=== PATIENT | female | born 1980 | race Caucasian/White ===

== ENCOUNTER 2017-01-08 13:51 | Inpatient (IN) | payer OTHER ==
[~2017-01-08] VITALS: Ht 167.6 cm; Wt 89.4 kg
--- NOTE | ~2017-01-08 | CON ---
[place], [place] REPORT OF CONSULTATION [facility]: [facility]O [facility]INS [id number] UNIT #: [id number] ROOM: 523 DOCTOR: SEBASTIAN WAKEFIELD MD BIRTHDATE: [birth year] DOS: 01/15/2017 CHIEF COMPLAINT: "I need to get my life together, I need help." HISTORY OF PRESENT ILLNESS: This is a 36-year-old white female who was admitted to the [facility] secondary to significant alcohol and opiate abuse. The patient was actively withdrawing upon admission. She reports using 1000 mg of Ultram daily and has been abusing Ultram for the last 3-4 years. Additionally, she will drink either a bottle of vodka or several bottles of wine daily. The patient from a psychiatric standpoint reports depression started approximately 15 or 16 years ago after the of her first child. Subsequently, she has had 2 more children in the last 2-3 years and the depression in each case became worse. 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 She also endorses significant free riding anxiety that is present through most of the day. In the past, she had been on Wellbutrin following the of her first child. Subsequently, she had a trial of Effexor that only seemed to make the symptoms of anxiety worse. Most recently, she was placed on Lexapro and feels that the Lexapro has helped with the depression and the anxiety, but there are still some residual symptoms that persist. The patient has been involved in an ongoing counseling session with a therapist out at [place], [place]. PAST MEDICAL HISTORY: Remarkable for hypothyroidism secondary to thyroid cancer and subsequent thyroidectomy. She also has a history of fibromyalgia and reflex sympathetic dystrophy. MENTAL STATUS: The patient is alert and oriented to person, place, and time. Mood is overwhelmingly depressed. Affect is flat and blunted with constricted range. She also endorses significant anxiety with the typical autonomic nervous system symptoms. There is no hypomania or quang. There are no overt auditory or visual hallucinations. No delusions, no paranoia. Short, intermediate, and long-term memory are intact. FINAL DIAGNOSES: Major depression, recurrent; dysthymic disorder; polysubstance dependence; and anxiety disorder, not otherwise specified. PLAN: Given the fact that she feels that the Lexapro has benefitted her, I will maintain the Lexapro 20 mg a day. I will augment with Abilify 5 mg at bedtime. If this does not help, I would recommend pushing the Abilify at least to 10 and consider the possibility of switching from Lexapro to Cymbalta. She is to go to a rehab facility from here. If she desires, she can follow up at [facility] with one of my nurse practitioners post-discharge. [place], [place] REPORT OF CONSULTATION NAME: MAURO HAWKINS UNIT #: [id number] ROOM: 523 DOCTOR: SEBASTIAN WAKEFIELD MD BIRTHDATE: [birth year] SEBASTIAN WAKEFIELD MD CM:CONSTR:REPORT OF CONSULTATION [id number] 01/15/17 0923 interface
[2017-01-08 14:11] VITALS: BP 162/120
[2017-01-08] MEDS ORDERED: Synthroid,Lev200 MCG PO (14:15)
[2017-01-08] MEDS ORDERED: ESCITALOPRAM OX20 MG PO (14:15)
[2017-01-08] MEDS ORDERED: TRAMADOL HCL50 MG PO (14:16)
[2017-01-08] MEDS ORDERED: VENLAFAXINE H37.5 M5 PO (14:16)
[2017-01-08] MEDS ORDERED: LYRICA200 M1 PO (14:17)
[2017-01-08 15:21] LABS: BASO # 0.1 10*3/uL (0.0-0.1); BASO % 1.1 % (0.0-1.0); HEMATOCRIT 42.3 % (37.0-47.0); IG # 0.1 10*3/uL (0.0-0.1); LYMPH # 0.7 10*3/uL (1.3-4.4); LYMPH % 9.7 % (27.0-41.0); MEAN CELL VOLUME 89.1 fl (81.0-99.0); MEAN CORPUSCULAR HGB 31.6 pg (27.0-31.0); MEAN CORPUSCULAR HGB CONC 35.5 g/dl (33.0-37.0); MEAN PLATELET VOLUME 9.9 fl (9.6-12.3); MONO # 0.4 10*3/uL (0.1-1.0); MONO % 5.2 % (3.0-9.0); NEUT % 83.3 % (47.0-73.0); PLATELET COUNT AUTOMATED 292 10*3/uL (130-400); RED BLOOD COUNT 4.75 10*6/uL (4.10-5.10); RED CELL DISTRI WIDTH 12.3 % (0-14.5); WHITE BLOOD COUNT 7.1 10*3/uL (4.8-10.8)
[2017-01-08 15:33] VITALS: BP 170/120
[2017-01-08 15:35] LABS: ALBUMIN 4.2 gm/dl (3.1-4.5); ALKALINE PHOSPHATASE 134 U/L (45-117); BILIRUBIN, TOTAL 0.9 mg/dl (0.2-1.0); BUN 12 mg/dl (7-24); CARBON DIOXIDE 30 mmol/L (21-32); CHLORIDE 99 mmol/L (98-107); EST GLOM FILT AFRICAN AMERICAN > 60 ml/min; GLUCOSE 106 mg/dL (65-99); MAGNESIUM 1.5 mg/dL (1.5-2.1); POTASSIUM 4.4 mmol/L (3.5-5.1); SGOT/AST 79 IU/L (3-35); SGPT/ALT 75 U/L (12-78); SODIUM 138 mmol/L (136-145); TOTAL PROTEIN 8.1 gm/dL (6.4-8.2)
[2017-01-08 15:42] VITALS: BP 165/102
[2017-01-08 16:00] VITALS: BP 147/104; BP 149/76
[2017-01-08 16:49] LABS: PROTHROMBIN TIME 10.8 SECONDS (9.0-12.4)
[2017-01-08 20:00] VITALS: BP 138/103
[2017-01-08 22:28] LABS: BILIRUBIN NEGATIVE (NEGATIVE); BLOOD NEGATIVE (NEGATIVE); CLARITY CLEAR (CLEAR); COLOR YELLOW (YELLOW); GLUCOSE NEGATIVE (NEGATIVE); KETONE NEGATIVE (NEGATIVE); LEUKO ESTERASE NEGATIVE (NEGATIVE); NITRITE NEGATIVE (NEGATIVE); PROTEIN TRACE (NEGATIVE); UROBILINOGEN 0.2 E.U./dl (0.2-1.0)
[2017-01-08 22:36] LABS: URINE REFLEX COMMENT NO (NO); WBC 0-2 wbc/hpf (0-5)
[2017-01-09] VITALS: BP 132/102
[2017-01-09 04:00] VITALS: BP 119/78
[2017-01-09 08:00] VITALS: BP 126/90
[2017-01-09 12:00] VITALS: BP 130/90
[2017-01-09 16:00] VITALS: BP 133/77
[2017-01-09 20:00] VITALS: BP 113/81
[2017-01-09 22:24] LABS: URINE AMPHETAMINES < 1000 (1000ng/ml); URINE BARBITURATES < 200 (200ng/ml); URINE COCAINE < 300 (300ng/ml)
[2017-01-10] VITALS: BP 134/67
[2017-01-10 08:00] VITALS: BP 116/73
[2017-01-10 12:00] VITALS: BP 115/86
[2017-01-10 16:00] VITALS: BP 117/79
[2017-01-10 20:00] VITALS: BP 142/93
[2017-01-11] VITALS: BP 131/79
[2017-01-11 06:43] LABS: BASO # 0.1 10*3/uL (0.0-0.1); BASO % 1.3 % (0.0-1.0); EOS # 0.2 10*3/uL (0.0-0.4); EOS % 4.4 % (1.0-4.0); HEMATOCRIT 32.5 % (37.0-47.0); HEMOGLOBIN 10.9 g/dl (12.0-16.0); LYMPH # 1.1 10*3/uL (1.3-4.4); LYMPH % 28.5 % (27.0-41.0); MEAN CELL VOLUME 95.3 fl (81.0-99.0); MEAN CORPUSCULAR HGB CONC 33.5 g/dl (33.0-37.0); MEAN PLATELET VOLUME 10.6 fl (9.6-12.3); MONO # 0.4 10*3/uL (0.1-1.0); MONO % 9.5 % (3.0-9.0); NEUT # 2.2 10*3/uL (2.3-7.9); NEUT % 55.5 % (47.0-73.0); PLATELET COUNT AUTOMATED 146 10*3/uL (130-400); RED BLOOD COUNT 3.41 10*6/uL (4.10-5.10); RED CELL DISTRI WIDTH 13.1 % (0-14.5); WHITE BLOOD COUNT 3.9 10*3/uL (4.8-10.8)
[2017-01-11 07:40] LABS: EST GLOM FILT AFRICAN AMERICAN > 60 ml/min
[2017-01-11 08:00] VITALS: BP 122/78
[2017-01-11 12:00] VITALS: BP 130/85
[2017-01-11 16:00] VITALS: BP 120/80
[2017-01-11 20:00] VITALS: BP 114/87
[2017-01-12] VITALS: BP 129/75
[2017-01-12 04:00] VITALS: BP 125/98
[2017-01-12 06:21] LABS: BASO % 0.8 % (0.0-1.0); EOS # 0.2 10*3/uL (0.0-0.4); EOS % 2.9 % (1.0-4.0); HEMATOCRIT 31.4 % (37.0-47.0); HEMOGLOBIN 10.5 g/dl (12.0-16.0); IG # 0.1 10*3/uL (0.0-0.1); LYMPH # 0.8 10*3/uL (1.3-4.4); LYMPH % 14.8 % (27.0-41.0); MEAN CELL VOLUME 95.2 fl (81.0-99.0); MEAN CORPUSCULAR HGB 31.8 pg (27.0-31.0); MEAN CORPUSCULAR HGB CONC 33.4 g/dl (33.0-37.0); MEAN PLATELET VOLUME 10.6 fl (9.6-12.3); MONO # 0.5 10*3/uL (0.1-1.0); MONO % 8.9 % (3.0-9.0); NEUT # 3.7 10*3/uL (2.3-7.9); NEUT % 71.6 % (47.0-73.0); PLATELET COUNT AUTOMATED 128 10*3/uL (130-400); RED CELL DISTRI WIDTH 13.2 % (0-14.5); WHITE BLOOD COUNT 5.1 10*3/uL (4.8-10.8)
[2017-01-12 08:00] VITALS: BP 143/86
[2017-01-12 16:00] VITALS: BP 129/76
[2017-01-12 20:00] VITALS: BP 137/66
[2017-01-13] VITALS: BP 112/84
[2017-01-13 08:00] VITALS: BP 134/94
[2017-01-13 12:00] VITALS: BP 150/98
[2017-01-13 16:00] VITALS: BP 146/86
[2017-01-13 20:00] VITALS: BP 137/87
[2017-01-14] VITALS: BP 131/95
[2017-01-14 06:32] LABS: EST GLOM FILT AFRICAN AMERICAN > 60 ml/min
[2017-01-14 08:00] VITALS: BP 140/82
[2017-01-14 12:00] VITALS: BP 139/98
[2017-01-14 16:00] VITALS: BP 136/87
[2017-01-14 20:00] VITALS: BP 141/86
[2017-01-15] VITALS: BP 138/86
[2017-01-15 06:22] LABS: BASO # 0.1 10*3/uL (0.0-0.1); BASO % 1.1 % (0.0-1.0); EOS # 0.2 10*3/uL (0.0-0.4); EOS % 5.2 % (1.0-4.0); HEMATOCRIT 34.8 % (37.0-47.0); HEMOGLOBIN 11.3 g/dl (12.0-16.0); IG # 0.1 10*3/uL (0.0-0.1); LYMPH # 1.2 10*3/uL (1.3-4.4); MEAN CELL VOLUME 95.3 fl (81.0-99.0); MEAN CORPUSCULAR HGB CONC 32.5 g/dl (33.0-37.0); MEAN PLATELET VOLUME 11.1 fl (9.6-12.3); MONO # 0.8 10*3/uL (0.1-1.0); MONO % 16.9 % (3.0-9.0); NEUT # 2.1 10*3/uL (2.3-7.9); NEUT % 47.8 % (47.0-73.0); PLATELET COUNT AUTOMATED 160 10*3/uL (130-400); RED BLOOD COUNT 3.65 10*6/uL (4.10-5.10); RED CELL DISTRI WIDTH 13.4 % (0-14.5); WHITE BLOOD COUNT 4.4 10*3/uL (4.8-10.8)
[2017-01-15 06:51] LABS: ALBUMIN 2.8 gm/dl (3.1-4.5); ALKALINE PHOSPHATASE 117 U/L (45-117); BILIRUBIN, TOTAL 0.4 mg/dl (0.2-1.0); BUN 6 mg/dl (7-24); CARBON DIOXIDE 32 mmol/L (21-32); CHLORIDE 109 mmol/L (98-107); EST GLOM FILT AFRICAN AMERICAN > 60 ml/min; GLUCOSE 91 mg/dL (65-99); POTASSIUM 4.4 mmol/L (3.5-5.1); SGOT/AST 193 IU/L (3-35); SGPT/ALT 264 U/L (12-78); SODIUM 146 mmol/L (136-145); TOTAL PROTEIN 6.2 gm/dL (6.4-8.2)
[2017-01-15 08:00] VITALS: BP 130/77
[2017-01-15] MEDS ORDERED: 'CLONIDINE0.1 MG PO (10:48)
[2017-01-15] MEDS ORDERED: CHLORDIAZEPOXID10 M2 PO (10:48)
[2017-01-15] MEDS ORDERED: ABILIFY5 MG PO (10:48)
[2017-01-15] MEDS ORDERED: ROPINIROLE HYD0.5 MG PO (10:48)
[2017-01-15] MEDS ORDERED: METHOCARBAMOL750 M1 PO (10:48)
[2017-01-15 12:00] VITALS: BP 138/62
== END 2017-01-15 15:15 | DRG 897 ==
LOC: ED 13:51 → EDHOLD 15:09 → 5E 15:09
PROVIDERS: Emergency Medicine; Internal Medicine; Internal Medicine Hospice and Palliative Medicine
DX: F10.239 Alcohol dependence with withdrawal, unspecified (principal); F11.23 Opioid dependence with withdrawal; F19.20 Other psychoactive substance dependence, uncomplicated; D69.6 Thrombocytopenia, unspecified; G90.50 Complex regional pain syndrome I, unspecified; F33.9 Major depressive disorder, recurrent, unspecified; R73.9 Hyperglycemia, unspecified; M79.7 Fibromyalgia; D64.9 Anemia, unspecified; D72.819 Decreased white blood cell count, unspecified; E66.09 Other obesity due to excess calories; E89.0 Postprocedural hypothyroidism; L40.9 Psoriasis, unspecified; R44.1 Visual hallucinations; F34.1 Dysthymic disorder; F41.9 Anxiety disorder, unspecified; Z81.8 Family history of other mental and behavioral disorders; Z81.1 Family history of alcohol abuse and dependence; Z79.899 Other long term (current) drug therapy; Z68.30 Body mass index [BMI] 30.0-30.9, adult